=== PATIENT | male | born 1985 | race Caucasian/White ===

== ENCOUNTER 2024-02-15 13:31 | Emergency (ER) | payer MEDICARE, MEDICAID, SELFPAY ==
[2024-02-15 13:32] VITALS: BP 136/108; PULSE 76; RESP 16; TEMP 35.6; O2SAT 97; BMI 29.7
--- NOTE | 2024-02-15 14:44 | EDS_ITS ---
HPI History of Present Illness Chief Complaint: Other, Pain/Inj Informant: patient Onset/Context/Timing Onset: Weeks (1) Context: Gradual Onset Timing: Continuous Quality: Bruised Location: Right external nose Worsened by: Nothing Relieved by: Salt water rinses, Tylenol Narrative Narrative: Patient presents with redness and swelling to the right side of his nose that has been getting worse over the last week. Patient states that it started off as a pimple on the external surface of his right nares. Patient states it has gotten progressively worse. Patient states that he is going up to the bridge of his nose where he noticed more swelling. Patient denies any bleeding. Patient denies any trauma or injury. Patient has been using salt water sprays and Tylenol which have been helping. Patient denies any fevers or chills. PFSH [facility] Medical History (Updated 02/15/24 @ 15:[address] Adeel Herrera, ) Depression Anxiety Medical History no medical history Home Medications ?Medication ?Instructions ?Recorded ?Last Taken ?Type clindamycin HCl 300 mg capsule 300 mg PO Q6H #40 CAPSULES 02/15/24 Unknown Rx (Cleocin HCl) mupirocin 2 % topical ointment 1 applic topical TID #1 tube 02/15/24 Unknown Rx Allergy/AdvReac Type Severity Reaction Status Date / Time No Known Allergies Allergy Verified 02/15/24 13:34 Surgical History (Updated 02/15/24 @ 15:[address] Adeel Herrera, ) Hx of vasectomy Surgical History no surgical history Social History (Updated 02/15/24 @ 15:[address] Adeel Herrera, ) Smoking Status: Never smoker substance use type: marijuana ROS ROS ED Constitutional Constitutional ED: Denies chills or fever(s) Eyes Eyes: Denies blurry vision or change in vision ENT ENT ED: Denies rhinorrhea or sore throat Cardiovascular Cardiovascular: Denies chest pain or palpitations Respiratory/Chest Respiratory/Chest: Denies cough or dyspnea Gastrointestinal Gastrointestinal: Denies nausea or vomiting Genitourinary Genitourinary ED: Denies dysuria or hematuria Musculoskeletal Musculoskeletal: Denies back pain or neck pain Integumentary Denies Abrasions or rash Neurologic Neurologic: Denies headache(s) or weakness Allergic/Immunologic Allergic/Immunologic ED: Denies mouth swelling or urticaria EXAM Physical Exam Const Vital Signs: 02/15/24 13:32 Temperature 96.1 F L Temperature Source Temporal Pulse Rate 76 Respiratory Rate 16 Blood Pressure 136/108 H Blood Pressure Mean 117 Pulse Ox 97 Oxygen Delivery Method Room Air Positive well nourished and well developed General Appearance ED: well developed and NAD HEENT Reports moist mucous membranes HEENT Narrative: Nasal mucosa is pink and moist. There is no epistaxis noted. There is no septal deviation or septal hematoma noted. There is some edema and tenderness over the lateral aspect of the right nose, over the nares and the bridge of the nose. There is no fluctuance. There is no active discharge or drainage noted. There is some mild warmth noted. Eyes PERRL and EOMs intact bilaterally Neuro oriented x3, CN's II-XII intact bilaterally and no sensory deficits noted Sensorium / Orientation: alert Motor Exam: strength 5/5 throughout Psych mental status grossly normal MDM MDM MDM Narrative Medical decision making narrative: Patient was advised that this is most likely a cellulitis to the right side of his nose. Patient was instructed to use warm compresses to the area. Patient was given a dose of clindamycin here. Patient was given prescription for clindamycin as well as a prescription for mupirocin. Patient was instructed to follow-up with his primary care physician in 5 to 7 days. Patient was instructed to return if worse in any way. Patient understood and was agreeable with the plan. All questions were answered. Discharge Plan Triage Chief Complaint: Other, Pain/Inj ED Provider: Adeel Herrera Dx/Rx/DC Orders Clinical Impression: Cellulitis, Marijuana use Instructions: ED Cellulitis Prescriptions: New clindamycin HCl [Cleocin HCl] 300 mg capsule 300 mg PO Q6H Qty: 40 0RF mupirocin 2 % ointment 1 applic topical TID Qty: 1 0RF Primary Care Provider: NOT,DEFINED Referrals: NOT,DEFINED [Primary Care Provider] - 5-7 Days Print Language: Kinyarwanda Disposition Disposition: Home, Self Care
[2024-02-15 15:42] VITALS: BP 129/88; PULSE 73; RESP 15; TEMP 36.2; O2SAT 100
[2024-02-15] MEDS: Clindamycin HCl 150 MG Capsule 300 MG PO (15:42)
== END 2024-02-15 15:44 | disposition home or self-care (01) ==
PROVIDERS: Emergency Provider Emergency Medicine; Visit Provider Emergency Medicine
DX: L03.211 Cellulitis of face (principal)
CPT/HCPCS: 99282